=== PATIENT | female | born 1995 | race Caucasian/White ===

== ENCOUNTER 2020-12-02 14:00 | Outpatient (CLI) | payer MEDICAID ==
[~2020-12-02] VITALS: Ht 162.6 cm; Wt 44.9 kg
[2020-12-02] MEDS ORDERED: ADDERAL20 MG ORAL (14:13)
[2020-12-02 14:15] VITALS: BP 105/72
--- NOTE | 2020-12-02 15:29 | Consultation ---
DATE OF CONSULTATION: 12/02/2020 CONSULTING PHYSICIAN: Aleksandar Kramer MD CHIEF COMPLAINT: Abdominal pain. HISTORY OF PRESENT ILLNESS: This is a 25-year-old female with past medial history of anxiety, has been diagnosed with IBS, also acid reflux disease at endoscopy apparently at [place] without any obvious findings is here because complained of some abdominal pain, bloating, weight loss. PAST MEDICAL HISTORY: 1. ADHD. 2. Anxiety. 3. Vitamin D deficiency. 4. IBS. PAST SURGICAL HISTORY: None. MEDICATION: Adderall. FAMILY HISTORY: Noncontributory. SOCIAL HISTORY: Patient occasionally drinks alcohol. Occasionally smokes tobacco. Also occasionally smokes weed. ALLERGIES: No known drug allergies. REVIEW OF SYSTEMS: As dictated above. PHYSICAL EXAMINATION: VITAL SIGNS: Temperature 97.9, blood pressure 105/72, pulse is 95, respirations 20. HEENT: Normocephalic and atraumatic. Sclerae anicteric. NECK: Supple. No evidence of obvious lymphadenopathy. CARDIOVASCULAR: Regular rate and rhythm. Plus S1-S2. LUNGS: Clear to auscultation bilaterally. ABDOMEN: Positive bowel sounds. Soft and nontender. No rebound. No guarding. No peritoneal sign. EXTREMITIES: No cyanosis, no clubbing, no edema. ASSESSMENT AND PLAN: This is a 25-year-old female with IBS and also SIBO symptoms. Plan to treat with Xifaxan for 14 days. Meanwhile, patient is to take either align or VSL number 3. Patient to come back after treatment for SIBO. Aleksandar Kramer M.D. DR: TONI JOB#: [id number] CC:
== END 2020-12-02 16:00 | disposition home or self-care (01) ==
LOC: PAN 14:00
DX: R10.9 Unspecified abdominal pain (principal); F41.9 Anxiety disorder, unspecified; Z79.899 Other long term (current) drug therapy; Z72.0 Tobacco use; K58.9 Irritable bowel syndrome, unspecified
CPT/HCPCS: 99203